=== PATIENT | female | born 1970 | race Caucasian/White ===

== ENCOUNTER 2017-08-14 10:37 | Outpatient (CLI) | payer BC ==
[2017-08-14] MEDS ORDERED: Iopamidol 370 76% 100 ML VIAL ONE (12:20)
== END 2017-08-14 10:38 | disposition home or self-care (01) ==
LOC: BICCT 10:37
DX: R10.84 Generalized abdominal pain (principal); K59.00 Constipation, unspecified
CPT/HCPCS: 74177

== ENCOUNTER 2017-08-28 11:24 | Outpatient (CLI) | payer BC | END 2017-08-28 11:25 | disposition home or self-care (01) | LOC: BICRAD 11:24 | PROVIDERS: ATTEND Internal Medicine Gastroenterology | DX: K59.09 Other constipation (principal); R93.5 Abnormal findings on diagnostic imaging of other abdominal regions, including retroperitoneum | CPT/HCPCS: 74018 ==

== ENCOUNTER 2017-08-31 13:00 | Outpatient (CLI) | payer BC ==
--- NOTE | 2017-08-31 13:54 | RAD ---
SITZ MARKER RADIOGRAPH SERIES TWO VIEWS PROVIDED: FINDINGS: There are 21 sitz markers seen on the frontal view of the abdomen traversing the left upper quadrant through right lower quadrant. On the provided frontal view of the pelvis, there are 3 sitz markers s een at the right hemipelvis. Small round densities of the pelvis indicate phleboliths. The bowel gas pattern is nonobstructed. T here is moderate retained fecal material of the colon. IMPRESSION: Twenty-one sitz markers are seen overlying the abdomen on the frontal view and 3 sitz markers are see n overlying the pelvis. POS: [facility]
== END 2017-08-31 13:01 | disposition home or self-care (01) ==
LOC: RAD 13:00
PROVIDERS: ATTEND Internal Medicine Gastroenterology
DX: K59.09 Other constipation (principal)
CPT/HCPCS: 74018

== ENCOUNTER 2017-10-10 17:00 | Emergency (ER) | payer BC ==
[~2017-10-10 17:00] MED LIST: ISOVUE-370 76%-LOCM 1 ML ONE
[2017-10-10 17:28] LABS: Bilirubin Negative (Negative); Blood, Urine Negative (Negative); Glucose, Urine (Dipstick) Negative (Negative); Leukocyte Negative (Negative); Nitrite Negative (Negative); Protein, Urine (Dipstick) Negative (Neg-Trace); Urobilinogen 0.2 mg/dL (0.2-1.0)
[2017-10-10 17:29] LABS: Clarity Clear (Clear)
[2017-10-10 18:18] LABS: #Eosinphils 0.2 thou/uL (0.0-0.7); #Lymphocytes 1.5 thou/uL (1.20-3.40); #Monocytes 0.4 thou/uL (0.11-0.59); #Neutrophils 3.5 thou/uL (1.40-6.50); %Basophils 0.7 % (0.0-1.0); %Eosinophils 3.1 % (0.0-10.0); %Lymphocytes 26.5 % (21.0-51.0); %Monocytes 7.1 % (0.0-10.0); %Neutrophils 62.5 % (42.0-75.0); Hemoglobin 14.7 g/dL (12.0-16.0); Mean Corpuscular HGB CONC 34.5 g/dL (32.0-36.0); Mean Corpuscular Volume 89.8 fl (81.0-99.0); Mean Platelet Volume 6.9 fL (7.4-10.4); Platelet Count 269 thou/uL (130-400); RBC Distribution Width 11.5 % (11.5-14.5); Red Blood Cell (RBC) Count 4.74 mill/uL (4.20-5.40); White Blood Cell (WBC) Count 5.6 thou/uL (4.8-10.8)
[2017-10-10 18:40] LABS: ALT (SGPT) 21 U/L (8-55); AST (SGOT) 28 U/L (5-34); Albumin 4.9 g/dL (3.5-5.0); Alkaline Phosphatase 51 U/L (40-150); Anion Gap 11 mmol/L (10-20); BUN (Urea Nitrogen) 11 mg/dL (7.0-18.7); Bilirubin, Total 1.6 mg/dL (0.2-1.2); Calc. Creatinine Clearance 0 mL/min (70-130); Carbon Dioxide 26 mmol/L (22-29); Chloride 106 mmol/L (98-107); Estimated GFR-MDRD 61; Globulin 2.8 g/dL (2.4-3.5); Glucose 100 mg/dL (70-105); Lipase 69 U/L (8-78); Potassium 4.1 mmol/L (3.5-5.1); Protein, Total 7.7 g/dL (6.0-8.3); Sodium 139 mmol/L (136-145)
[2017-10-10] MEDS ORDERED: Ondansetron ODT 4 MG TAB ONE (18:49)
--- NOTE | 2017-10-10 20:57 | CT ---
CT OF THE ABDOMEN AND PELVIS WITH CONTRAST: 10/10/17 COMPARISON: 06/24/16 HISTORY: Abdominal pain since Monday on the right side of the abdomen. This pain is worse today. TECHNIQUE: Multiple contiguous axial images were obtained in a CT of the abdomen and pelvis with contrast. Coron светлана reformats were performed. FINDINGS: The gallbladder is contracted. The liver, kidneys, adrenal glands, spleen, and pancreas are unremarka ble. No free air, free fluid, or stranding changes are seen in the abdomen or pelvis. The large and s mall bowel are unremarkable. The appendix is not definitely seen but there are no secondary signs for acute appendicitis in the right lower quadrant of the abdomen. No abdominal or pelvic lymphadenopathy are seen. The reproductive organs are not seen and they have b een removed. The osseous structures, visualized inferior thorax, abdominal wall soft tissues are unremarkable. IMPRESSION: No evidence of acute intra-abdominal/pelvic abnormality. POS: [facility]
== END 2017-10-10 21:55 | disposition home or self-care (01) ==
LOC: ERS 17:00
DX: R10.11 Right upper quadrant pain (principal); R10.33 Periumbilical pain; M06.9 Rheumatoid arthritis, unspecified; G35 Multiple sclerosis; Z79.899 Other long term (current) drug therapy
CPT/HCPCS: 36415; 74177; 80053; 81003; 82150; 83690; 85025; Q0162

== ENCOUNTER 2018-09-21 09:31 | Outpatient (CLI) | payer BC ==
--- NOTE | 2018-09-21 12:52 | MRI ---
MRI BRAIN WITH AND WITHOUT CONTRAST: 09/21/2018 HISTORY: A 48-year-old female with multiple sclerosis, G35. Followup. COMPARISON: 02/26/2016 TECHNIQUE: Multiple sequences obtained in axial, sagittal, and coronal planes; pre and post IV injection of gado linium-based contrast agent: MultiHance 10 mL. FINDINGS: Numerous small, focal intraaxial T2 hyperintense white matter signal abnormalities in the periventric ular, deep, and subcortical white matter. Many of them have Molina's finger configuration, and many of the lesions involve the splenium and body of the corpus callosum, including its undersurface, and the septocallosal interface, all characteristic for multiple sclerosis. The previously demonstrated tiny focus of faint enhancement in the left malloy radiata is no longer present. Currently, there is no abnormal enhancement to indicate any actively demyelinating lesion. Otherwise, there has been no other interval change. The ventricles are normal in size and configuration. No restricted diffusio n, mass effect, midline shift, hemorrhage, or extraaxial fluid collection. IMPRESSION: 1. Evidence for multiple sclerosis, with mild to moderate plaque burden. 2. No evidence of interval progression since 02/26/2016. LEIGHANN Angel POS: [facility]
[2018-09-21] MEDS ORDERED: Gadobenate Dimeglumine 529 MG/1 ML (20ML VIAL) ONE (12:55)
== END 2018-09-21 09:32 | disposition home or self-care (01) ==
LOC: BICMRI 09:31
PROVIDERS: ATTEND Physician Assistant
DX: G35 Multiple sclerosis (principal); I67.2 Cerebral atherosclerosis
CPT/HCPCS: 70553; A9577

== ENCOUNTER 2019-04-03 10:11 | Outpatient (CLI) | payer BC ==
--- NOTE | 2019-04-03 14:03 | ULT ---
THYROID ULTRASOUND INDICATION: Abnormal thyroid laboratory evaluations TECHNIQUE: Grayscale and color Doppler images were obtained of the thyroid gland. COMPARISON: None FINDINGS: Right thyroid lobe: The right thyroid lobe measures 4.8 x 1.0 x 1.2 cm. Thyroid isthmus: The thyroid isthmus measures 0.15 cm. Left thyroid lobe: The left thyroid lobe measures 4.5 x 0.8 x 1.2 cm. IMPRESSION: 1. No focal thyroid lesion demonstrated.
--- NOTE | 2019-04-03 15:15 | MMO ---
Bilateral MAMMO Bilat Screen [facility]. CLINICAL HISTORY: Patient is 48 years old and is seen for screening. The patient has no family history of breast cancer. The patient has no personal history of cancer. VIEWS: The views performed were: bilateral craniocaudal with tomosynthesis; bilateral mediolateral oblique with tomosynthesis; and bilateral exaggerated craniocaudal. FILMS COMPARED: The present examination has been compared to prior imaging studies performed at [facility] on 04/04/2014 and 02/08/2017. This study has been interpreted with the assistance of computer-aided detection. MAMMOGRAM FINDINGS: The breasts are heterogeneously dense, which could obscure a lesion on mammography. There are no suspicious masses, suspicious calcifications, or new areas of architectural distortion. IMPRESSION: THERE IS NO MAMMOGRAPHIC EVIDENCE OF MALIGNANCY. A ROUTINE FOLLOW-UP MAMMOGRAM IN 1 YEAR IS RECOMMENDED. THE RESULTS OF THIS EXAM WERE SENT TO THE PATIENT. ACR BI-RADS Category 1 - Negative MAMMOGRAPHY NOTE: 1. A negative mammogram report should not delay a biopsy if a dominant of clinically suspicious mass is present. 2. Approximately 10% to 15% of breast cancers are not detected by mammography. 3. Adenosis and dense breasts may obscure an underlying neoplasm. Reported by: LEROY TAYLOR MD Electonically Signed: [id number]
== END 2019-04-03 10:12 | disposition home or self-care (01) ==
LOC: BICMAMMO 10:11
PROVIDERS: ATTEND Nurse Practitioner Family
DX: Z12.31 Encounter for screening mammogram for malignant neoplasm of breast (principal); R94.6 Abnormal results of thyroid function studies
CPT/HCPCS: 76536; 77063; 77067

== ENCOUNTER 2019-08-04 14:25 | Emergency (ER) | payer BC ==
[2019-08-04 15:39] LABS: #Eosinphils 0.1 thou/uL (0.0-0.7); #Lymphocytes 0.9 thou/uL (1.20-3.40); #Monocytes 0.4 thou/uL (0.11-0.59); #Neutrophils 3.9 thou/uL (1.40-6.50); %Basophils 0.3 % (0.0-1.0); %Lymphocytes 16.6 % (21.0-51.0); %Monocytes 7.2 % (0.0-10.0); %Neutrophils 74.8 % (42.0-75.0); Hemoglobin 13.1 g/dL (12.0-16.0); Mean Corpuscular HGB CONC 34.4 g/dL (32.0-36.0); Mean Corpuscular Hemoglobin 31.8 pg (27.0-31.0); Mean Corpuscular Volume 92.5 fL (78.0-98.0); Platelet Count 254 thou/uL (130-400); RBC Distribution Width 11.1 % (11.5-14.5); Red Blood Cell (RBC) Count 4.11 mill/uL (4.20-5.40); White Blood Cell (WBC) Count 5.2 thou/uL (4.8-10.8)
[2019-08-04 16:01] LABS: ALT (SGPT) 20 U/L (8-55); AST (SGOT) 25 U/L (5-34); Albumin 4.3 g/dL (3.5-5.0); Alkaline Phosphatase 40 U/L (40-110); Anion Gap 11 mmol/L (10-20); BUN (Urea Nitrogen) 9 mg/dL (7.0-18.7); Bilirubin, Total 1.9 mg/dL (0.2-1.2); Calc. Creatinine Clearance 0 mL/min (70-130); Calcium 8.8 mg/dL (7.8-10.44); Carbon Dioxide 23 mmol/L (22-29); Chloride 109 mmol/L (98-107); Estimated GFR-MDRD 80; Globulin 2.2 g/dL (2.4-3.5); Glucose 104 mg/dL (70-105); Lipase 50 U/L (8-78); Potassium 3.8 mmol/L (3.5-5.1); Protein, Total 6.5 g/dL (6.0-8.3); Sodium 139 mmol/L (136-145)
[2019-08-04] MEDS ORDERED: Ondansetron PF 4 MG/2 ML Vial ONE (16:06)
[2019-08-04 17:23] LABS: Bilirubin Negative (Negative); Blood, Urine Negative (Negative); Clarity Clear (Clear); Glucose, Urine (Dipstick) Normal (Negative); Leukocyte Negative Leu/uL (Negative); Nitrite Negative (Negative); Protein, Urine (Dipstick) Negative (Neg-Trace); Urobilinogen Normal mg/dL (Less than 2)
[2019-08-04] MEDS ORDERED: predniSONE 50 MG TAB PO SCH (17:30)
== END 2019-08-04 18:50 | disposition home or self-care (01) ==
LOC: ERS 14:25
DX: R53.1 Weakness (principal); M06.9 Rheumatoid arthritis, unspecified; E03.9 Hypothyroidism, unspecified; Z79.899 Other long term (current) drug therapy
CPT/HCPCS: 36415; 80053; 81003; 82533; 83690; 85025; 93005; 96361; 96374; J2405; J7512

== ENCOUNTER 2020-01-25 11:09 | Emergency (ER) | payer BC ==
[2020-01-25] MEDS ORDERED: Dexamethasone 10 MG/ML VIAL ONE (11:39)
[2020-01-25 12:00] LABS: #Lymphocytes 0.9 thou/uL (1.20-3.40); #Monocytes 0.2 thou/uL (0.11-0.59); %Basophils 0.6 % (0.0-1.0); %Eosinophils 0.3 % (0.0-10.0); %Lymphocytes 12.7 % (21.0-51.0); %Monocytes 3.1 % (0.0-10.0); %Neutrophils 83.4 % (42.0-75.0); Hemoglobin 14.6 g/dL (12.0-16.0); Mean Corpuscular HGB CONC 34.7 g/dL (32.0-36.0); Mean Corpuscular Hemoglobin 32.5 pg (27.0-31.0); Mean Corpuscular Volume 93.7 fL (78.0-98.0); Mean Platelet Volume 7.5 fL (7.4-10.4); Platelet Count 274 thou/uL (130-400); RBC Distribution Width 11.3 % (11.5-14.5); Red Blood Cell (RBC) Count 4.49 mill/uL (4.20-5.40); White Blood Cell (WBC) Count 7.2 thou/uL (4.8-10.8)
[2020-01-25 12:08] LABS: Bilirubin Negative (Negative); Blood, Urine Negative (Negative); Clarity Clear (Clear); Glucose, Urine (Dipstick) Normal (Negative); Ketone, Urine Negative (Negative); Leukocyte Negative Leu/uL (Negative); Nitrite Negative (Negative); Protein, Urine (Dipstick) Negative (Neg-Trace); Specific Gravity, Urine 1.006 (1.002-1.036); Urobilinogen Normal mg/dL (Less than 2)
--- NOTE | 2020-01-25 12:10 | RAD ---
CHEST 1 VIEW PORTABLE: Date: 01/25/2020 HISTORY: Altered mental status, weakness, nausea, vomiting. COMPARISON: 03/03/2017. FINDINGS: Heart size is normal. The lungs are clear. No pneumonia, edema, or pleural effusion. IMPRESSION: No significant acute intrathoracic disease. Stable from prior study. POS: [facility]
[2020-01-25 12:20] LABS: ALT (SGPT) 19 U/L (8-55); AST (SGOT) 23 U/L (5-34); Albumin 4.5 g/dL (3.5-5.0); Alkaline Phosphatase 47 U/L (40-110); Anion Gap 14 mmol/L (10-20); BUN (Urea Nitrogen) 10 mg/dL (7.0-18.7); CK (CPK) 52 U/L (29-168); Calc. Creatinine Clearance 0 mL/min (70-130); Calcium 9.1 mg/dL (7.8-10.44); Carbon Dioxide 23 mmol/L (22-29); Chloride 105 mmol/L (98-107); Estimated GFR-MDRD 78; Globulin 2.5 g/dL (2.4-3.5); Glucose 104 mg/dL (70-105); Potassium 3.7 mmol/L (3.5-5.1); Sodium 138 mmol/L (136-145)
== END 2020-01-25 13:50 | disposition home or self-care (01) ==
LOC: ERS 11:09
DX: E86.0 Dehydration (principal); E27.40 Unspecified adrenocortical insufficiency; E03.9 Hypothyroidism, unspecified; Z79.899 Other long term (current) drug therapy
CPT/HCPCS: 36415; 71045; 80053; 81003; 82550; 84443; 84484; 85025; 93005; 96361; 96374; J1100

== ENCOUNTER 2020-09-17 08:46 | Outpatient (CLI) | payer BC | END 2020-09-17 08:47 | disposition home or self-care (01) | LOC: SCSMRI 08:46 | PROVIDERS: ATTEND Physician Assistant | DX: G35 Multiple sclerosis (principal) | CPT/HCPCS: 70551; 72141 ==

== ENCOUNTER 2022-03-04 12:41 | Outpatient (CLI) | payer BC | END 2022-03-04 12:42 | disposition home or self-care (01) | LOC: BICRAD 12:41 | PROVIDERS: ATTEND Internal Medicine Gastroenterology | DX: R10.9 Unspecified abdominal pain (principal) | CPT/HCPCS: 74018 ==

== ENCOUNTER 2022-09-22 12:21 | Outpatient (CLI) | payer BC | END 2022-09-22 12:22 | disposition home or self-care (01) | LOC: TBSIIMAG 12:21 | PROVIDERS: ATTEND Physician Assistant | DX: G35 Multiple sclerosis (principal); M47.814 Spondylosis without myelopathy or radiculopathy, thoracic region; R93.0 Abnormal findings on diagnostic imaging of skull and head, not elsewhere classified | CPT/HCPCS: 70551; 72141; 72146 ==

== ENCOUNTER 2023-03-31 14:58 | Outpatient (CLI) | payer BC ==
[2023-03-31] MEDS ORDERED: Iopamidol 370 76% 100 ML VIAL ONE (15:42)
== END 2023-03-31 14:59 | disposition home or self-care (01) ==
LOC: BICCT 14:58
PROVIDERS: ATTEND Internal Medicine Gastroenterology
DX: R10.9 Unspecified abdominal pain (principal); K92.1 Melena; R11.0 Nausea; K63.89 Other specified diseases of intestine; N94.89 Other specified conditions associated with female genital organs and menstrual cycle
CPT/HCPCS: 74178; Q9967

== ENCOUNTER 2023-09-24 15:18 | Emergency (ER) | payer BC ==
[~2023-09-24 15:18] MED LIST changes: -ISOVUE-370 76%-LOCM 1 ML ONE; +Iopamidol-370 76% 500 ML MDV (1 ML CHARGE) ONE
[2023-09-24 16:04] LABS: Bacteria/HPF None Seen HPF (None Seen); Bilirubin Negative (Negative); Blood, Urine Negative (Negative); CAUTI Indications for Culture Alt mental st,lethar; Clarity Clear (Clear); Glucose, Urine (Dipstick) Normal (Negative); Ketone, Urine Negative (Negative); Leukocyte Negative Leu/uL (Negative); Nitrite Negative (Negative); Protein, Urine (Dipstick) Negative (Neg-Trace); RBC/HPF None Seen HPF (0-3); Specific Gravity, Urine 1.007 (1.002-1.036); Squamous Epithelial None Seen HPF (0-3); Urobilinogen Normal mg/dL (Less than 2); WBC/HPF 0-3 HPF (0-3)
[2023-09-24 16:06] LABS: Urine Culture Reflex No No
[2023-09-24 16:09] LABS: #Basophils 0.1 thou/uL (0.0-0.2); #Monocytes 0.4 thou/uL (0.11-0.59); #Neutrophils 5.1 thou/uL (1.40-6.50); %Basophils 0.8 % (0.0-1.0); %Eosinophils 0.3 % (0.0-10.0); %Lymphocytes 13.7 % (21.0-51.0); %Monocytes 6.2 % (0.0-10.0); %Neutrophils 78.7 % (42.0-75.0); Hematocrit 33.6 % (36.0-47.0); Hemoglobin 11.7 g/dL (12.0-16.0); Mean Corpuscular HGB CONC 34.8 g/dL (32.0-36.0); Mean Corpuscular Hemoglobin 31.7 pg (27.0-31.0); Mean Corpuscular Volume 91.1 fl (78.0-98.0); Platelet Count 212 10x3/uL (130-400); RBC Distribution Width 12.7 % (11.5-14.5); Red Blood Cell (RBC) Count 3.69 mill/uL (4.20-5.40); White Blood Cell (WBC) Count 6.4 10x3/uL (4.8-10.8)
[2023-09-24 16:12] LABS: Amphetamine Not Detected (NotDetected); Barbiturates Screen Not Detected (NotDetected); Benzodiazepine Screen Detected (NotDetected); Cocaine Metabolite Screen Not Detected (NotDetected); Methadone Not Detected (NotDetected); Methamphetamine Not Detected (NotDetected); Opiate Screen Not Detected (NotDetected); Oxycodone Screen Not Detected (NotDetected); Phencyclidine (PCP) Not Detected (NotDetected); THC/Cannabinoid Screen Not Detected (NotDetected); Tricyclic Screen Not Detected (NotDetected)
[2023-09-24 16:23] LABS: BHCG - Serum Negative (NEGATIVE); Pregs Control Background? CLEAR/WHITE (CLR/WHITE); Pregs Control Bar Appear? YES (CONTROL BAR)
[2023-09-24 16:28] LABS: ALT (SGPT) 25 U/L (8-55); AST (SGOT) 27 U/L (5-34); Alkaline Phosphatase 37 U/L (40-110); Anion Gap 14 mmol/L (10-20); BUN (Urea Nitrogen) 10 mg/dL (9.8-20.1); Bilirubin, Total 2.3 mg/dL (0.2-1.2); Calc. Creatinine Clearance 0 mL/min (70-130); Calcium 8.7 mg/dL (7.8-10.44); Carbon Dioxide 20 mmol/L (22-29); Chloride 109 mmol/L (98-107); Estimated GFR 92; Glucose 87 mg/dL (70-105); Potassium 3.8 mmol/L (3.5-5.1); Sodium 139 mmol/L (136-145)
[2023-09-24 16:29] LABS: Acetaminophen Less than 10 mcg/mL (10.0-30.0); Alcohol Less than 10.0 mg/dL (Less than 10); Magnesium 1.7 mg/dL (1.6-2.6); Salicylate Less than 8.0 mg/dL (15.0-30.0)
[2023-09-24] MEDS ORDERED: diphenhydrAMINE 50 MG/ML VIAL ONE (17:10)
[2023-09-24] MEDS ORDERED: Hydrocortisone Sod Succ/PF 100 mg/2 ml Vial ONE (18:31)
[2023-09-24 19:43] LABS: Troponin I Less than 0.010 ng/mL (< 0.028)
== END 2023-09-24 20:44 | disposition home or self-care (01) ==
LOC: ERS 15:18
DX: R53.1 Weakness (principal); R19.7 Diarrhea, unspecified; R00.1 Bradycardia, unspecified; Z55.0 Illiteracy and low-level literacy
CPT/HCPCS: 36415; 70450; 74177; 80053; 80306; 80307; 81001; 83735; 84484; 84703; 85025; 93005; 96361; 96374; 96375; J1200; J1720; J1790; Q9967

== ENCOUNTER 2023-10-12 07:50 | Outpatient (CLI) | payer BC ==
[2023-10-12] MEDS ORDERED: Glucagon 1 MG/ML KIT ONE (08:51)
== END 2023-10-12 07:51 | disposition home or self-care (01) ==
LOC: MRI 07:50
PROVIDERS: ATTEND Psychiatry & Neurology Neurology
DX: R10.9 Unspecified abdominal pain (principal); K59.01 Slow transit constipation; K59.09 Other constipation; K63.89 Other specified diseases of intestine
CPT/HCPCS: 74183; J1611

== ENCOUNTER 2023-12-25 09:13 | Outpatient (CLI) | payer BC | END 2023-12-25 09:14 | disposition home or self-care (01) | LOC: BICMAMMO 09:13 | PROVIDERS: ATTEND Obstetrics & Gynecology | DX: R92.8 Other abnormal and inconclusive findings on diagnostic imaging of breast (principal); R92.1 Mammographic calcification found on diagnostic imaging of breast | CPT/HCPCS: G0279 ==

== ENCOUNTER 2024-06-26 13:22 | Outpatient (CLI) | payer BC | END 2024-06-26 13:23 | disposition home or self-care (01) | LOC: BICMAMMO 13:22 | PROVIDERS: ATTEND Obstetrics & Gynecology | DX: N63.20 Unspecified lump in the left breast, unspecified quadrant (principal); R92.1 Mammographic calcification found on diagnostic imaging of breast | CPT/HCPCS: G0279 ==